=== PATIENT | female | born 1965 | race Caucasian/White ===

== ENCOUNTER 2017-01-18 07:25 | Emergency (ER) | payer OTHER ==
[2017-01-18 07:40] VITALS: RESP 18; TEMP 98.6
--- NOTE | 2017-01-18 08:11 | UCPHY ---
H & P Patient Type: New Chief Complaint Nursing Narrative: left shoulder pain after a fall on uneven ground on Wednesday. Was further exacerbated by walking dog yesterday. hx of a fracture in same shoulder approx 20 years ago. Time Seen by Provider: 01/18/17 08:03 HPI/ROS: CHIEF COMPLAINT: Left shoulder injury HISTORY OF PRESENT ILLNESS: Patient is a 51-year-old female comes to the Urgent Care complaining of left shoulder pain. She states that a few days ago she tripped over a sidewalk and fell with her hands in front of her. Then yesterday her dog pulled her hard on the leash laterally. She has trouble lifting arm above 90 degrees in any direction. She has pain with axial rotation. No tenderness or step-offs. She denies any neck or back pain. REVIEW OF SYSTEMS: Constitutional: denies: chills, fever, recent illness, recent injury EENTM: denies: blurred vision, double vision, nose congestion Respiratory: denies: cough, shortness of breath Cardiac: denies: chest pain, irregular heart rate, lightheadedness, palpitations Gastrointestinal/Abdominal: denies: abdominal pain, diarrhea, nausea, vomiting, blood streaked stools Genitourinary: denies: dysuria, frequency, hematuria, pain Musculoskeletal: See HPI Skin: denies: lesions, rash, jaundice, bruising Neurological: denies: headache, numbness, paresthesia, tingling, dizziness, weakness Hematologic/Lymphatic: denies: blood clots, easy bleeding, easy bruising Immunologic/allergic: denies: HIV/AIDS, transplant EXAM: GENERAL: Well-appearing, well-nourished and in no acute distress. HEAD: Atraumatic, normocephalic. EYES: Pupils equal round and reactive to light, extraocular movements intact, sclera anicteric, conjunctiva are normal. ENT: TMs normal, nares patent, oropharynx clear without exudates. Moist mucous membranes. NECK: Normal range of motion, supple without lymphadenopathy or JVD. LUNGS: Breath sounds clear to auscultation bilaterally and equal. No wheezes rales or rhonchi. HEART: Regular rate and rhythm without murmurs, rubs or gallops. ABDOMEN: Soft, nontender, normoactive bowel sounds. No guarding, no rebound. No masses appreciated. BACK: No CVA tenderness, no spinal tenderness, step-offs or deformities EXTREMITIES: Left shoulder pain with elevation above 90 degrees or with axial rotation in or out. Normal hand mate ship strength. Normal pulses, normal elbow exam. NEUROLOGICAL: Cranial nerves II through XII grossly intact. Normal speech, normal gait. 5/5 strength, normal movement in all extremities, normal sensation PSYCH: Normal mood, normal affect. SKIN: Warm, dry, normal turgor, no visible rashes or lesions. Source: Patient Exam Limitations: No limitations - Personal History Current Tetanus/Diphtheria Vaccine: Yes Current Tetanus Diphtheria and Acellular Pertussis (TDAP): Yes Tetanus Vaccine Date: 2006 - Medical/Surgical History Hx Asthma: No Hx Chronic Respiratory Disease: No Hx Diabetes: No Hx Cardiac Disease: Yes Hx Renal Disease: No Hx Cirrhosis: No Hx Alcoholism: No Hx HIV/AIDS: No Hx Splenectomy or Spleen Trauma: No Other PMH: breast CA, HTN - Family History Significant Family History: No pertinent family hx - Social History Smoking Status: Never smoked Alcohol Use: Sober Drug Use: None Constitutional: Initial Vital Signs Temperature (C) 37 C 01/18/17 07:36 Heart Rate 85 01/18/17 07:36 Respiratory Rate 18 01/18/17 07:36 Blood Pressure 118/92 H 01/18/17 07:36 O2 Sat (%) 94 01/18/17 07:36 O2 Delivery Mode Room Air Allergies/Adverse Reactions: oseltamivir [From Tamiflu] Allergy (Verified 01/18/17 07:35) Penicillins Allergy (Verified 01/18/17 07:35) Home Medications: Medication Instructions Recorded ASPIRIN 01/18/17 HCTZ (*) 01/18/17 Hydrocodone/APAP 5/325 [[place] 1 - 2 tab PO Q6H PRN #10 tab 01/18/17 5/325 (*)] Losartan Potassium 01/18/17 Metoprolol Succinate 01/18/17 VENLAFAXINE HCL 01/18/17 Medical Decision Making - Diagnostics Imaging: X-ray: Left shoulder x-ray was obtained. I viewed the images myself on the PACS system. My interpretation of the images is: Negative. The radiologist interpretation is pending. ED Course/Re-evaluation: 8:10 a.m. the patient's exam is consistent with the rotator cuff injury. I will place her in a sling and have her follow up with Orthopedics. She understands and agrees with this plan. She will take ibuprofen during the day But is requesting Vicodin at night. She and her agree with this plan. Differential Diagnosis: Partial list of the Differential diagnosis considered include but were not limited to; rotator cuff injury, shoulder separation and although unlikely based on the history and physical exam, I also considered dislocation, fracture. I discussed these differential diagnoses and the plan with the patient as well as the usual and expected course. The patient understands that the diagnosis is provisional and that in medicine we are not always correct and that further workup is often warranted. Usual and customary warnings were given. All of the patient's questions were answered. The patient was instructed to return to the emergency department should the symptoms at all worsen or return, otherwise to followup with the physician as we discussed. Departure - Departure Disposition: Home, Routine, Self-Care Clinical Impression: Rotator cuff injury Qualifiers: Encounter type: initial encounter Laterality: left Qualified Code(s): S46.002A - Unspecified injury of muscle(s) and tendon(s) of the rotator cuff of left shoulder, initial encounter Condition: Fair Instructions: Rotator Cuff Injury (ED) Referrals: Art Leon MD [Medical Doctor] - As per Instructions Prescriptions: Hydrocodone/APAP 5/325 [[place] 5/325 (*)] 1 - 2 tab PO Q6H PRN #10 tab PRN Reason: Pain, Moderate - PQRS PQRS Measurement: Not applicable
[2017-01-18 08:12] VITALS: BP 120/74; PULSE 72; O2SAT 95
== END 2017-01-18 08:15 | disposition home or self-care (01) ==
LOC: CED 07:25
DX: S46.002A Unspecified injury of muscle(s) and tendon(s) of the rotator cuff of left shoulder, initial encounter (principal); W19.XXXA Unspecified fall, initial encounter; Y93.K1 Activity, walking an animal
CPT/HCPCS: 73030; 99211; L3670; 99204-PO; G0463-PO

== ENCOUNTER → 2017-01-19 | Outpatient (CLI) | payer OTHER | LOC: FIMAGING 07:56 | PROVIDERS: ATTEND Internal Medicine Hematology & Oncology | DX: Z12.31 Encounter for screening mammogram for malignant neoplasm of breast (principal); Z90.11 Acquired absence of right breast and nipple; Z80.3 Family history of malignant neoplasm of breast | CPT/HCPCS: G0202-52 ==

== ENCOUNTER → 2017-09-30 | Outpatient (CLI) | payer OTHER | LOC: BMCIMAGING 11:59 | PROVIDERS: ATTEND Family Medicine | DX: M54.9 Dorsalgia, unspecified (principal) ==

== ENCOUNTER → 2019-01-24 | Outpatient (CLI) | payer OTHER | LOC: FIMAGING 07:43 | PROVIDERS: ATTEND Internal Medicine Hematology & Oncology | DX: Z12.31 Encounter for screening mammogram for malignant neoplasm of breast (principal); Z85.3 Personal history of malignant neoplasm of breast; Z90.11 Acquired absence of right breast and nipple; Z80.3 Family history of malignant neoplasm of breast ==